=== PATIENT | female | born 1995 ===

== ENCOUNTER 2017-04-03 10:02 | Emergency (ER) | payer BC ==
[2017-04-03 12:16] VITALS: BP 111/71
== END 2017-04-03 12:14 | disposition left against medical advice (07) ==
LOC: UCEAST 10:02
DX: R10.9 Unspecified abdominal pain (principal); Z53.21 Procedure and treatment not carried out due to patient leaving prior to being seen by health care provider
CPT/HCPCS: 81003; 84702; 99213; G0463

== ENCOUNTER 2017-04-03 12:49 | Emergency (ER) | payer BC ==
[2017-04-03 14:31] LABS: Hematocrit 39 % (35-47); Hemoglobin 12.9 g/dl (12.0-16.0); Mean Corpuscular HGB Conc 33 g/dl (31-36); Mean Corpuscular Hemoglobin 27 pg (27-31); Mean Corpuscular Volume 83 fL (80-97); Mean Platelet Volume 9 um3 (7.4-10.4); Red Blood Count 4.71 10^6/ul (4.0-5.4); Red Cell Distribution Width 13 % (10.5-15); White Blood Count 7.5 10^3/ul (3.5-10.8)
[2017-04-03 14:52] LABS: ALT 10 U/L (7-52); AST 12 U/L (13-39); Albumin 4.2 g/dL (3.2-5.2); Alkaline Phosphatase 37 U/L (34-104); Anion Gap 4 mmol/L (2-11); BUN/Creatinine Ratio 12.7 (8-20); Blood Urea Nitrogen 9 mg/dL (6-24); C Reactive Protein 13.99 mg/L (< 5.00); CO2 Carbon Dioxide 26 mmol/L (22-32); Calcium 9.1 mg/dL (8.6-10.3); Chloride 106 mmol/L (101-111); EGFR African American 132.4 (>60); EGFR Non-African American 102.9 (>60); Globulin 1.9 g/dL (2-4); Glucose 81 mg/dL (70-100); Lipase 12 U/L (11.0-82.0); Potassium 3.7 mmol/L (3.5-5.0); Sodium 136 mmol/L (133-145); Total Protein 6.1 g/dL (6.4-8.9)
--- NOTE | 2017-04-03 15:46 | RAD ---
HISTORY: Lower abdominal pain COMPARISONS: None TECHNIQUE: Multiple transverse and longitudinal ultrasound images were obtained of the pelvis using grayscale and color Doppler imaging using the endovaginal transducer. FINDINGS: UTERUS: The uterus measures 7.7 x 3.6 x 4.5 cm. The uterus is normal in shape, size, contour, and echotexture. ENDOMETRIUM: The endometrial stripe is smooth. The endometrium measures 0.2 cm in thickness. CUL-DE-SAC: There is a small amount of simple fluid within the cul-de-sac. This may be physiologic in a reproductive age female. RIGHT OVARY: The right ovary measures 3.9 x 3 x 4.2 cm. There is a heterogeneously isoechoic lesion of the right ovary measuring 3.5 x 2.5 x 3.7 cm in size. Normal arterial and venous waveforms are identifiable within the ovary on spectral Doppler imaging. LEFT OVARY: The left ovary measures 4.1 x 4.5 x 2.7 cm. There is a 3 x 1.9 x 3.1 cm simple left ovarian cyst. Normal arterial and venous waveforms are identifiable within the ovary on spectral Doppler imaging. BLADDER: The bladder is not well visualized. IMPRESSION: 1. COMPLEX CYSTIC LESION OF THE RIGHT OVARY MEASURING 3.5 CM IN SIZE. THIS MAY REPRESENT A HEMORRHAGIC CYST VERSUS ENDOMETRIOMA. RECOMMEND FOLLOW-UP IMAGING IN 6 WEEKS TO 12 WEEKS TO DOCUMENT RESOLUTION. 2. 3.1 CM SIMPLE CYST OF THE LEFT OVARY 3. SMALL AMOUNT OF FLUID WITHIN THE CUL-DE-SAC. THIS MAY BE PHYSIOLOGIC WITHIN A REPRODUCTIVE AGE FEMALE. 4. NO SONOGRAPHIC FEATURES OF TORSION. PLEASE NOTE THAT PARTIAL OR INTERMITTENT TORSION MAY BE SONOGRAPHICALLY NORMAL.
--- NOTE | 2017-04-03 15:48 | RAD ---
Indication: RIGHT greater than LEFT lower quadrant pain. Afebrile. Comparison: No relevant prior exams available on the [facility] [place] [place] PACS for comparison. Technique: Ultrasound of the right lower quadrant. Report: Suggestion of a blind-ending tubular structure with gut wall signature measuring up to 5 mm diameter along the RIGHT pelvic sidewall possibly representing the appendix. No definitive connection with the cecum visualized to confirm this represents the appendix. No RIGHT lower quadrant free fluid or lymphadenopathy visualized. IMPRESSION: Potential although not definitive normal appendix visualized. Negative for secondary findings such as free fluid or RIGHT lower quadrant lymphadenopathy to suggest presence of a RIGHT lower quadrant inflammatory process. Correlate with clinical assessment and consider CT for further assessment if deemed appropriate.
[2017-04-03 16:46] VITALS: BP 105/66
[2017-04-03] MEDS ORDERED: HYDROcodone/ACETAMIN 5-325 MG* 1 TAB PO ONE (17:18)
--- NOTE | 2017-04-03 22:57 | ED ---
Alejandra Keating Alfonso, scribed for Mundo Ponce MD on 04/03/17 at 1339 . Abdominal Pain/Female - HPI Summary HPI Summary: This patient is a 21 year old female presenting to [facility] c/o sharp lower abdominal pain since 1999 yesterday. The pain waxes and wanes. She currently rates the pain 8/10 in severity. Symptoms alleviated by lying down and aggravated by movement. She last ate at 1900 yesterday and has been nauseous since. The patient denies fevers, chills, diarrhea, constipation, and vaginal discharge. She reports no BM today. Her last menstrual cycle ended 2 weeks ago. PMHx of UTI. No PSHx. - History of Current Complaint Chief Complaint: EDAbdPain Stated Complaint: ABD PAIN Time Seen by Provider: 04/03/17 13:34 Hx Last Menstrual Period: 03/18/17 Onset/Duration: Sudden Onset, Lasting Days - Since 1999 last night Timing: Constant - Severity waxes and wanes Severity Initially: Severe Severity Currently: Severe Pain Intensity: 8 Pain Scale Used: 0-10 Numeric Location: Discrete At: RLQ, Discrete At: LUQ Character: Sharp Aggravating Factor(s): Movement Alleviating Factor(s): Position - Lying down Associated Signs and Symptoms: Positive: Nausea, Other: - Negative chills. Negative: Fever, Constipation, Vaginal Discharge, Diarrhea Allergies/Adverse Reactions: Allergies Allergy/AdvReac Type Severity Reaction Status Date / Time No Known Allergies Allergy Verified 04/03/17 10:14 PMH/Surg Hx/FS Hx/Imm Hx Sensory History: Denies: Hx Deafness Opthamlomology History: Denies: Hx Legally Blind Infectious Disease History: No Infectious Disease History: Denies: Hx Clostridium Difficile, Hx Hepatitis, Hx Human Immunodeficiency Virus (HIV), Hx of Known/Suspected MRSA, Hx Shingles, Hx Tuberculosis, Hx Known/ Suspected VRE, Hx Known/Suspected VRSA, History Other Infectious Disease, Traveled Outside the [place] in Last 30 Days - Family History Known Family History: Positive: Other - Thyroid disease in mother - Social History Alcohol Use: Occasionally Substance Use Type: Reports: None Smoking Status (MU): Never Smoked Tobacco Review of Systems Negative: Fever, Chills Positive: Abdominal Pain - Sharp lower abdominal pain, Nausea, Other - Negative constipation. Negative: Diarrhea Positive: other - Negative vaginal discharge All Other Systems Reviewed And Are Negative: Yes Physical Exam Triage Information Reviewed: Yes Vital Signs On Initial Exam: Initial Vitals Temp Pulse Resp BP Pulse Ox 98.1 F 69 20 121/78 100 04/03/17 12:53 04/03/17 12:53 04/03/17 12:53 04/03/17 12:53 04/03/17 12:53 Vital Signs Reviewed: Yes Appearance: Positive: Well-Appearing, No Pain Distress Skin: Positive: Warm, Skin Color Reflects Adequate Perfusion, Dry Head/Face: Positive: Normal Head/Face Inspection Eyes: Positive: Normal ENT: Positive: Normal ENT inspection Neck: Positive: Supple, Nontender Respiratory/Lung Sounds: Positive: Clear to Auscultation, Breath Sounds Present Cardiovascular: Positive: RRR Abdomen Description: Positive: Other: - Abdomen tender in RLQ and LLQ. Abdomen mildly tender in RUQ. Bowel Sounds: Positive: Present Musculoskeletal: Positive: Normal Neurological: Positive: Normal, Sensory/Motor Intact, Alert, Oriented to Person Place, Time, CN Intact II-III Psychiatric: Positive: Affect/Mood Appropriate Diagnostics - Vital Signs Vital Signs Temp Pulse Resp BP Pulse Ox 04/03/17 12:56 97.9 F 68 20 121/78 99 04/03/17 12:53 98.1 F 69 20 121/78 100 - Laboratory Lab Results: Lab Results 04/03/17 04/03/17 04/03/17 Range/Units 14:16 14:16 14:16 WBC 7.5 (3.5-10.8) 10^3/ul RBC 4.71 (4.0-5.4) 10^6/ul Hgb 12.9 (12.0-16.0) g/dl Hct 39 (35-47) % MCV 83 (80-97) fL MCH 27 (27-31) pg MCHC 33 (31-36) g/dl RDW 13 (10.5-15) % Plt Count 182 (150-450) 10^3/ul MPV 9 (7.4-10.4) um3 Neut % (Auto) 68.4 (38-83) % Lymph % (Auto) 21.5 L (25-47) % [place] % (Auto) 7.6 (1-9) % Eos % (Auto) 2.0 (0-6) % Baso % (Auto) 0.5 (0-2) % Absolute Neuts (auto) 5.1 (1.5-7.7) 10^3/ul Absolute Lymphs (auto) 1.6 (1.0-4.8) 10^3/ul Absolute Monos (auto) 0.6 (0-0.8) 10^3/ul Absolute Eos (auto) 0.1 (0-0.6) 10^3/ul Absolute Basos (auto) 0 (0-0.2) 10^3/ul Absolute Nucleated RBC 0 10^3/ul Nucleated RBC % 0 Sodium 136 (133-145) mmol/L Potassium 3.7 (3.5-5.0) mmol/L Chloride 106 (101-111) mmol/L Carbon Dioxide 26 (22-32) mmol/L Anion Gap 4 (2-11) mmol/L BUN 9 (6-24) mg/dL Creatinine 0.71 (0.51-0.95) mg/dL Est GFR ( Amer) 132.4 (>60) Est GFR (Non-Af Amer) 102.9 (>60) BUN/Creatinine Ratio 12.7 (8-20) Glucose 81 (70-100) mg/dL Lactic Acid 0.7 (0.5-2.0) mmol/L Calcium 9.1 (8.6-10.3) mg/dL Total Bilirubin 0.80 (0.2-1.0) mg/dL AST 12 L (13-39) U/L ALT 10 (7-52) U/L Alkaline Phosphatase 37 (34-104) U/L C-Reactive Protein 13.99 H (< 5.00) mg/L Total Protein 6.1 L (6.4-8.9) g/dL Albumin 4.2 (3.2-5.2) g/dL Globulin 1.9 L (2-4) g/dL Albumin/Globulin Ratio 2.2 (1-3) Lipase 12 (11.0-82.0) U/L Beta HCG, Quant < 0.60 mIU/mL Result Diagrams: 04/03/17 14:16 04/03/17 14:16 Lab Statement: Any lab studies that have been ordered have been reviewed, and results considered in the medical decision making process. - Additional Comments Diagnostic Additional Comments: US Abdomen Potential although not definitive normal appendix visualized. Negative for secondary findings such as free fluid or RIGHT lower quadrant lymphadenopathy to suggest presence of a RIGHT lower quadrant inflammatory process. Correlate with clinical assessment and consider CT for further assessment if deemed appropriate. US Transvaginal 1. COMPLEX CYSTIC LESION OF THE RIGHT OVARY MEASURING 3.5 CM IN SIZE. THIS MAY REPRESENT A HEMORRHAGIC CYST VERSUS ENDOMETRIOMA. RECOMMEND FOLLOW-UP IMAGING IN 6 WEEKS TO 12 WEEKS TO DOCUMENT RESOLUTION. 2. 3.1 CM SIMPLE CYST OF THE LEFT OVARY 3. SMALL AMOUNT OF FLUID WITHIN THE CUL-DE-SAC. THIS MAY BE PHYSIOLOGIC WITHIN A REPRODUCTIVE AGE FEMALE. 4. NO SONOGRAPHIC FEATURES OF TORSION. PLEASE NOTE THAT PARTIAL OR INTERMITTENT TORSION MAY BE SONOGRAPHICALLY NORMAL. Re-Evaluation - Re-Evaluation First Eval Re-Evaluation Time: 16:06 Comment: Discussed results and plan for discharge. Patient understands and is agreeable. Abdominal Pain Fem Course/Dx - Course Course Of Treatment: Ms. Sanchez has had abdominal pain for about 24 hours. She has mild nausea but is hungry now. She is mid cycle. Her labs were OK and an U/S showed a right hemorrhagic cyst and a left cyst also. I will treat her symptomatically. She prefers not to have a pelvic at this time and will F/U if she develops any discharge or fever. - Diagnoses Provider Diagnoses: Ovarian cyst Discharge - Discharge Plan Condition: Stable Disposition: HOME Prescriptions: HYDROcodone/ACETAMIN 5-325 MG* [[place] 5-325 TAB*] 1 tab PO Q6H PRN #20 tab MDD 4 PRN Reason: Pain Patient Education Materials: Hydrocodone/Acetaminophen (By mouth), Ovarian Cyst (ED) Referrals: No Primary Care Phys,NOPCP [Primary Care Provider] - The documentation as recorded by the Alejandra villaseñor Alfonso accurately reflects the service I personally performed and the decisions made by me, Mundo Ponce MD.
== END 2017-04-03 17:34 | disposition home or self-care (01) ==
LOC: ED 12:49
DX: N83.209 Unspecified ovarian cyst, unspecified side (principal); R10.30 Lower abdominal pain, unspecified; R11.0 Nausea
CPT/HCPCS: 36415; 76705; 76830; 80053; 83605; 83690; 84702; 85025; 86140; 99282